=== PATIENT | male | born 1965 | race Caucasian/White ===

== ENCOUNTER 2023-08-21 08:11 | Day surgery (SDC) | payer OTHER, SELFPAY ==
[2023-08-21] VITALS (15 sets, daily range): BP systolic 101–150; BP diastolic 82–95; BMI 26.3
[2023-08-21 09:11] LABS: Glucose - Point of Care 286 mg/dl (70-99)
[2023-08-21] MEDS: NSS 1000 IV ×2 (09:23→11:44)
[2023-08-21 10:53] LABS: ACT-LR - POC 292 Seconds (116-155)
--- NOTE | 2023-08-21 11:53 | ITS.CL.CATH ---
[facility] - Catheterization
Cardiac Catheterization
Procedure Report:
CARDIAC CATHETERIZATION REPORT
Date of Procedure: 08/21/2023
Referring: Gunnar Pemberton MD
Indication: Recent onset angina with multiple CAD risk factors (active smoking, DM, LDL 190)
HEMODYNAMIC DATA
AO: 126/73
LV: 126/21
LEFT VENTRICULOGRAPHY: Normal left ventricular wall motion with EF 68%
CORONARY ANGIOGRAPHY
Dominance: Right
Left Main: Normal
LAD: Highly angulated 80% mid LAD stenosis otherwise normal
Circumflex: 20% stenosis in the mid circumflex proximal to the takeoff of the moderate to large OM 3. OM1 and OM 2 are tiny. The circumflex terminates with a medium to large OM 4.
RCA: Trivial luminal irregularities
Angioplasty: At the conclusion of the diagnostic study, the patient underwent intervention to treat the highly angulated 80% mid LAD lesion. There was fairly extreme tortuosity of the LAD proper and it was clear that this would make the procedure
somewhat challenging. Heparin was used for anticoagulation. Plavix 600 mg was administered at the procedure conclusion. An EBU 3.75 guide catheter was advanced left coronary ostium. A long BMW wire was advanced into the LAD. Initially, we were
able to get the wire through the lesion but it then selected a septal clinical research director immediately distal to the lesion rather than making the acute turn into the continuation of the LAD past the lesion site. Accordingly, a [id number] 2.5 x 12 trek
balloon was advanced into the vessel. The wire was removed and a more acute band was made on it. The wire was then reintroduced through the balloon catheter and with very good fortune we were able to get the wire distal to the lesion in the LAD
proper and advance it about 30-40 mm distal to the lesion. This allowed us to get the 2.512 trek balloon across the lesion and dilated to 6 dee. Of note, the patient experienced chest discomfort with balloon occlusion similar to what he had as an
outpatient. Following this predilatation, the balloon catheter was removed. A 6 [place] guide liner was advanced into the mid LAD to maximize support prior to stenting. We were able to get a 2.75 x 15 Xience YANET across the lesion without a fight.
The stent was deployed at 12 dee then postdilated with a 2.75 NC trek to 16 dee. There was kinking of the LAD proximal to the stent which resolved completely when the wire was withdrawn so that the soft distal portion of the wire allowed the vessel
to take its usual angulated configuration. The final angiographic result was outstanding with no residual stenosis. There were no procedural complications.
Closure Device: None-the procedure was performed via the right radial artery. The Nagi's test was normal prior to the procedure.
Radiation (mGy): 419
DAP (cm2.Gy): 36.2
Fluoroscopy time: 9.9 minutes
CONCLUSIONS
1: Mildly elevated LVEDP
2: Normal left ventricular function with EF 68%
3. Single-vessel CAD as described with 80% mid LAD stenosis
4. Successful stenting of 80% mid LAD lesion using 2.75 x 15 Xience YANET with outstanding angiographic result
5. Recommend dual antiplatelet therapy for 6-12 months and aggressive risk factor modification efforts. The patient clearly understands that noncompliance with dual antiplatelet therapy may lead to stent thrombosis which carries a 25% risk of
mortality
Copy to: Gunnar Pemberton MD, Karri Stallworth MD
Dick Gr MD, [facility], [facility]
--- NOTE | 2023-08-21 14:53 | W.PN.UPDATE ---
Update Note
Progress Note Update
57 yo WM s/p PCI LAD x1 (same day). He feels good, no cp, sob, jacey diet, voiding, amb w/o dizziness, EKG SR no ST changes, R radial site c/d/i. He will be on DAPT ASA/Plavix. He will hold metformin 48 hours post procedure. He will stop omeprazole
and switch to protonix while on plavix. Cardiac rehab c/s. He will f/u Dr. Pemberton in 1 month. He is for d/c home after 430p.
CONCLUSIONS
1: Mildly elevated LVEDP
2: Normal left ventricular function with EF 68%
3.� Single-vessel CAD as described with 80% mid LAD stenosis
4.� Successful stenting of 80% mid LAD lesion using 2.75 x 15 Xience YANET with outstanding angiographic result
5.� Recommend dual antiplatelet therapy for 6-12 months and aggressive risk factor modification efforts.� The patient clearly understands that noncompliance with dual antiplatelet therapy may lead to stent thrombosis which carries a 25% risk of
mortality
Copy to: Gunnar Pemberton MD, Karri Stallworth MD
[2023-08-22 08:34] LABS: ACT-LR - POC > 397 Seconds (116-155)
== END 2023-08-21 17:05 | disposition home or self-care (01) ==
LOC: CATH 08:11
PROVIDERS: ATTENDING PHYSICIAN Internal Medicine Cardiovascular Disease; FAMILY PHYSICIAN Internal Medicine
DX: I25.119 Atherosclerotic heart disease of native coronary artery with unspecified angina pectoris (principal); Z79.82 Long term (current) use of aspirin; Z79.02 Long term (current) use of antithrombotics/antiplatelets; E11.9 Type 2 diabetes mellitus without complications
CPT/HCPCS: 82962; 85347; 93005; 93458; C1725; C1769; C1874; C1894; C9600; Q9967